=== PATIENT | male | born 1955 | race Caucasian/White ===

== ENCOUNTER 2023-04-24 08:05 | Outpatient (CLI) | payer MEDICARE, SELFPAY | END 2023-04-24 08:06 | disposition home or self-care (01) | LOC: AMB 05-01 16:46 | PROVIDERS: Visit Provider Family Medicine | DX: R42 Dizziness and giddiness (principal); R11.10 Vomiting, unspecified; I95.9 Hypotension, unspecified | CPT/HCPCS: A0425; A0427 ==

== ENCOUNTER 2023-04-24 08:31 | Emergency (ER) | payer MEDICARE, OTHER, SELFPAY ==
[2023-04-24] VITALS (42 sets, daily range): BP systolic 96–134; BP diastolic 49–75; PULSE 79–106; RESP 16; TEMP 35.9; O2SAT 92–100; BMI 26.4
--- NOTE | 2023-04-24 08:47 | CRLHL7_ITS ---
For Patients: As a result of the Century Cures Act, medical imaging exams and procedure reports are released immediately into your electronic medical record. You may view this report before your referring provider. If you have questions, please contact your health care provider. INDICATION: SOB TECHNIQUE: Chest 1 views. COMPARISON: None. FINDINGS: Cardiovascular and mediastinum: Heart size and vasculature are normal in caliber and appearance. Lungs and pleural spaces: Lungs are clear. No sign of infiltrate. No sign of pleural effusion. No pneumothorax. Bones and soft tissues: No significant findings. IMPRESSION: No evidence of acute cardiopulmonary process. Dictated by Monroe Finch MD @ 04/24/2023 10:42:20 AM (Electronically Signed)
--- NOTE | 2023-04-24 08:49 | ED_ITS ---
HPI - General Adult General Chief complaint: Syncope/Fainted Stated complaint: Ill Time Seen by Provider: 04/24/23 08:34 Source: patient Mode of arrival: EMS Limitations: no limitations History of Present Illness HPI narrative: 67-year-old male presenting today complaining of not feeling well. He states that he gets out of bed around 2:00 a.m. to get to work by for, works at [employer], and when he arrived at work he states that he felt ?wonky. Describes this feeling as being lightheaded and tired. He denies fevers or chills. He states he does have a cough on and off. States that he had COVID about 2 weeks ago but feels that his symptoms are almost completely resolved aside from a very mild cough that still comes and goes. He does tell me that around midnight he did get up in vomit x1. Thought that he ate something that did not agree with him. States that yesterday he was feeling fine. He does have history of diabetes, checked his blood sugar when he did not feel good and was elevated in the 300s. Checked his blood pressure in the top number was 69. States that his systolic blood pressures are usually around 130 when he gets up in the morning. He denies a headache, nausea or vomiting. He has no changes in his appetite. He denies any chest or abdominal pain. He denies difficulty walking. He denies any focal neurologic deficits. He denies any urinary symptoms. He denies any diarrhea. He does feel short of breath with minimal physical activity. He states that this has happened to him in the past, he has required fluids and then he felt much better. Related Data Home Medications Medication Instructions Recorded Confirmed duloxetine PO 04/24/23 glyburide PO DAILY 04/24/23 lisinopril PO 04/24/23 lovastatin PO 04/24/23 metformin PO 04/24/23 semaglutide subcut .weekly 04/24/23 tamsulosin 0.4 mg capsule 0.4 mg PO DAILY 04/24/23 04/24/23 Allergies Allergy/AdvReac Type Severity Reaction Status Date / Time No Known Drug Allergies Allergy Verified 04/24/23 14:52 Review of Systems Status of ROS: Reports: 10 or more systems reviewed and unremarkable except as noted in History and below PFSH PFSH Social History Smoking Status: Former smoker Do you use any of these nicotine containing products: None Second hand tobacco smoke exposure: No How often do you have a drink containing alcohol: monthly or less How many standard drinks containing alcohol do you have on a typical day: 1 or 2 How often do you have six or more drinks on one occasion: Never AUDIT-C Alcohol total score: 1 Non-prescribed substance use: denies use service: Yes Exam Narrative: Exam Narrative: Well-nourished well-developed patient in no acute distress. Alert and oriented x3. Answers questions appropriately. Mood and affect are appropriate. Thoughts are goal oriented and rational. No tangential or magical thinking noted. Patient speaks in full sentences without needing to catch their breath. Patient is tachycardic and hypotensive. HEENT: Normocephalic atraumatic. Pupils are equally round reactive to light. Extraocular muscles are intact. Conjunctivae are moist without any icterus noted. Dry mucous membranes. Posterior pharynx is normal. Neck is soft without any lymphadenopathy or thyromegaly. No masses are appreciated. Cardiovascular: Heart is regular rate and rhythm S1 and S2 are present without any murmurs. Lungs: Clear to auscultation bilaterally no wheezes rhonchi or rales are appreciated. Patient takes deep breaths without any discomfort. Abdomen: Soft and nontender nondistended with normal bowel sounds. No guarding or rebound. No masses or organomegaly appreciated. Extremities: Bilateral lower extremities are without edema. Normal DP and PT pulses. Skin: Well perfused without any obvious rashes. Const: Vital Signs, click to edit/add: Vital Signs - 24 hr 04/24/23 08:37 04/24/23 08:53 04/24/23 09:00 Temperature 96.7 F L Pulse Rate 103 H 101 H Pulse Rate [Pulse Oximeter] 106 H Respiratory Rate 16 Blood Pressure Blood Pressure [Ri ght Upper Arm] 96/49 L Blood Pressure [or thostatic lying Ri ght Arm] Blood Pressure [or thostatic sitting Right Arm] Blood Pressure [or thostatic standing Right Arm] Pulse Oximetry 93 96 98 Oxygen Delivery Me thod Room Air 04/24/23 09:05 04/24/23 09:06 04/24/23 09:13 Temperature Pulse Rate 106 H 103 H Pulse Rate [Pulse Oximeter] Respiratory Rate Blood Pressure Blood Pressure [Ri ght Upper Arm] Blood Pressure [or thostatic lying Ri ght Arm] Blood Pressure [or thostatic sitting Right Arm] Blood Pressure [or thostatic standing Right Arm] Pulse Oximetry 95 95 96 Oxygen Delivery Me thod 04/24/23 09:19 04/24/23 09:20 04/24/23 09:30 Temperature Pulse Rate 103 H 100 96 Pulse Rate [Pulse Oximeter] Respiratory Rate Blood Pressure Blood Pressure [Ri ght Upper Arm] Blood Pressure [or thostatic lying Ri ght Arm] Blood Pressure [or thostatic sitting Right Arm] Blood Pressure [or thostatic standing Right Arm] Pulse Oximetry 95 96 96 Oxygen Delivery Me thod 04/24/23 09:32 04/24/23 09:45 04/24/23 09:46 Temperature Pulse Rate 94 93 93 Pulse Rate [Pulse Oximeter] Respiratory Rate Blood Pressure 102/57 L 99/66 Blood Pressure [Ri ght Upper Arm] Blood Pressure [or thostatic lying Ri ght Arm] Blood Pressure [or thostatic sitting Right Arm] Blood Pressure [or thostatic standing Right Arm] Pulse Oximetry 95 96 94 Oxygen Delivery Me thod 04/24/23 10:15 04/24/23 10:17 04/24/23 10:30 Temperature Pulse Rate 100 92 88 Pulse Rate [Pulse Oximeter] Respiratory Rate Blood Pressure 112/56 L Blood Pressure [Ri ght Upper Arm] Blood Pressure [or thostatic lying Ri ght Arm] Blood Pressure [or thostatic sitting Right Arm] Blood Pressure [or thostatic standing Right Arm] Pulse Oximetry 97 97 96 Oxygen Delivery Me thod 04/24/23 10:32 04/24/23 10:47 04/24/23 11:01 Temperature Pulse Rate 85 Pulse Rate [Pulse Oximeter] Respiratory Rate Blood Pressure 104/59 L 101/59 L 111/63 Blood Pressure [Ri ght Upper Arm] Blood Pressure [or thostatic lying Ri ght Arm] Blood Pressure [or thostatic sitting Right Arm] Blood Pressure [or thostatic standing Right Arm] Pulse Oximetry 96 Oxygen Delivery Me thod 04/24/23 11:42 04/24/23 12:02 04/24/23 12:14 Temperature Pulse Rate Pulse Rate [Pulse Oximeter] Respiratory Rate Blood Pressure 106/62 113/61 108/57 L Blood Pressure [Ri ght Upper Arm] Blood Pressure [or thostatic lying Ri ght Arm] Blood Pressure [or thostatic sitting Right Arm] Blood Pressure [or thostatic standing Right Arm] Pulse Oximetry Oxygen Delivery Me thod 04/24/23 12:32 04/24/23 12:33 04/24/23 12:37 Temperature Pulse Rate Pulse Rate [Pulse Oximeter] Respiratory Rate Blood Pressure 114/59 L 111/67 122/65 Blood Pressure [Ri ght Upper Arm] Blood Pressure [or thostatic lying Ri ght Arm] Blood Pressure [or thostatic sitting Right Arm] Blood Pressure [or thostatic standing Right Arm] Pulse Oximetry Oxygen Delivery Sd thod 04/24/23 12:45 04/24/23 13:02 04/24/23 13:13 Temperature Pulse Rate 84 Pulse Rate [Pulse Oximeter] Respiratory Rate Blood Pressure 119/64 Blood Pressure [Ri ght Upper Arm] Blood Pressure [or thostatic lying Ri ght Arm] 108/57 L Blood Pressure [or thostatic sitting Right Arm] 114/59 L Blood Pressure [or thostatic standing Right Arm] 122/65 Pulse Oximetry 98 Oxygen Delivery Sd thod 04/24/23 13:30 04/24/23 13:32 04/24/23 14:00 Temperature Pulse Rate 85 87 85 Pulse Rate [Pulse Oximeter] Respiratory Rate Blood Pressure 119/65 Blood Pressure [Ri ght Upper Arm] Blood Pressure [or thostatic lying Ri ght Arm] Blood Pressure [or thostatic sitting Right Arm] Blood Pressure [or thostatic standing Right Arm] Pulse Oximetry 98 98 96 Oxygen Delivery Sd thod 04/24/23 14:02 04/24/23 14:03 04/24/23 14:54 Temperature Pulse Rate 85 85 89 Pulse Rate [Pulse Oximeter] Respiratory Rate Blood Pressure 118/64 Blood Pressure [Ri ght Upper Arm] Blood Pressure [or thostatic lying Ri ght Arm] Blood Pressure [or thostatic sitting Right Arm] Blood Pressure [or thostatic standing Right Arm] Pulse Oximetry 96 96 96 Oxygen Delivery Sd thod 04/24/23 15:00 04/24/23 15:02 Temperature Pulse Rate 84 83 Pulse Rate [Pulse Oximeter] Respiratory Rate Blood Pressure 134/63 Blood Pressure [Ri ght Upper Arm] Blood Pressure [or thostatic lying Ri ght Arm] Blood Pressure [or thostatic sitting Right Arm] Blood Pressure [or thostatic standing Right Arm] Pulse Oximetry 97 98 Oxygen Delivery Me thod Course Course ED Course: Patient had received about 200 mL of normal saline while in the ambulance, with finish off that bag of 500 mL right away. Another L was started at this time. Point of care glucose in the ambulance was 336. EKG, read by me, shows sinus tachycardia with a pulse of 106 and a left axis deviation. Labs were drawn did show an elevated lactate in 4.8. Lab work was otherwise unremarkable. Repeat lactate was improved at 2.5. Patient did feel significantly better. Was no longer lightheaded. Pressure came up into the 120 systolic. Patient was in the ER for 4 hours, did not have any urine output in the 1st 4 hours. It was until he had a total of 2 L of normal saline that he had urine output. Unfortunately, patient's D-dimer did come back elevated. I did discuss with the patient next steps. With mutual decision making we did proceed with a chest CT to rule out PE given that he was short of breath upon presentation and he had COVID infection 2 weeks ago. We also discussed the possibility of an aortic dissection however patient is completely asymptomatic as far as any chest, abdominal, back or groin pain. We discussed that there is a possibility of an aortic dissection that is otherwise asymptomatic, although rare. This would require a double dose of radiation. Because he was already feeling better, we opted just for the PE study. This was negative. Vital Signs Vital signs: Initial Vital Signs Temperature 96.7 F L 04/24/23 08:37 Temperature Source Temporal Artery Scan 04/24/23 08:37 Pulse Rate 106 H 04/24/23 08:37 Pulse Rhythm Regular 04/24/23 08:37 Pulse Strength 3+ Normal 04/24/23 08:37 Respiratory Rate 16 04/24/23 08:37 Blood Pressure 96/49 L 04/24/23 08:37 Blood Pressure Mean 64 L 04/24/23 08:37 Blood Pressure Position Semi-Fowlers 04/24/23 08:37 Pulse Oximetry 93 04/24/23 08:37 Oxygen Delivery Method Room Air 04/24/23 08:37 Vital Signs Temperature 96.7 F L 04/24/23 08:37 Pulse Rate 106 H 04/24/23 08:37 Respiratory Rate 16 04/24/23 08:37 Blood Pressure 96/49 L 04/24/23 08:37 Pulse Oximetry 93 04/24/23 08:37 Oxygen Delivery Method Room Air 04/24/23 08:37 Temperature 96.7 F L 04/24/23 08:37 Pulse Rate 83 04/24/23 15:02 Respiratory Rate 16 04/24/23 08:37 Blood Pressure 134/63 04/24/23 15:02 Pulse Oximetry 98 04/24/23 15:02 Oxygen Delivery Method Room Air 04/24/23 08:37 Medications Administered Medications: Discontinued Medications Generic Name Dose Route Start Last Admin Trade Name Freq PRN Reason Stop Dose Admin Sodium Chloride 1,000 mls @ 1,000 mls/hr 04/24/23 09:00 04/24/23 10:00 0.9 % Sodium Chloride 1000 Ml IV 04/24/23 09:59 Infused .Q1H [facility] Infusion Sodium Chloride 500 mls @ 500 mls/hr 04/24/23 12:06 04/24/23 14:52 0.9 % Sodium Chloride 500 Ml IV 04/24/23 13:05 Infused .Q1H [facility] Infusion Medical Decision Making MDM Narrative Medical decision making narrative: 67-year-old male with acute dehydration, hypotension, hyperglycemia. Patient is unable to tell me how much fluid he drinks in a day. I asked him to keep a journal as he tells me that this has happened to him in the past. Medical Records Medical records reviewed: Yes I reviewed the patient's medical records Lab Data Lab results reviewed: Yes I reviewed the patient's lab results Labs: Lab Results 04/24/23 04/24/23 04/24/23 Range/Units 08:45 10:02 11:33 WBC 8.08 (4.50-11.00) K/uL RBC 4.26 L (4.30-5.90) m/uL Hgb 12.7 L (13.5-17.5) gm/dL Hct 37.6 (37.0-53.0) % MCV 88 (80-100) fL MCH 30 (26-34) pg MCHC 34 (32-36) gm/dL RDW Coeff of Liz 12.0 (11.5-15.5) % Plt Count 267 (140-440) K/uL Neut % (Auto) 77.2 H (42.0-72.0) % Lymph % (Auto) 15.6 L (20-44) % [place] % (Auto) 5.7 (0.0-11.0) % Eos % (Auto) 0.9 (0.0-7.0) % Baso % (Auto) 0.5 (0.0-3.0) % Neut # (Auto) 6.20 (1.7-7.0) K/uL Lymph # (Auto) 1.30 (0.90-2.90) K/uL [place] # (Auto) 0.50 (0.00-0.90) K/UL Eos # (Auto) 0.07 (0.00-0.50) K/uL Baso # (Auto) 0.04 (0.00-0.30) K/uL Abs Immat Gran (auto) 0.01 (0.00-0.30) K/uL Imm/Tot Granulo (auto) 0.1 % D-Dimer Quant (PE/DVT) 0.71 H (0.00-0.50) ug/ml VBG pH 7.327 (7.32-7.43) VBG pCO2 42 (40-50) mmHG VBG pO2 37.4 (25-47) mmHG VBG HCO3 22 (21-28) mmol/L Sodium 134 L (135-149) mmol/L Potassium 4.9 (3.6-5.1) mmol/L Chloride 101 (96-114) mmol/L Carbon Dioxide 19 L (20-32) mmol/L Anion Gap 14 (7-15) mEq/L BUN 26 (7-30) mg/dL Creatinine 1.5 (0.5-1.5) mg/dL Estimated Creat Clear 55.49 Estimated GFR 51 ml/min Glucose 287 H (60-115) mg/dL Lactate 4.8 H* 2.5 H (0.5-1.9) mmol/L Calcium 8.9 (8.4-10.6) mg/dL Total Bilirubin 0.2 (0.1-1.5) mg/dL Direct Bilirubin 0.0 (0.0-0.5) mg/dL AST 17 (12-35) U/L ALT 22 (4-50) U/L Alkaline Phosphatase 62 (40-150) U/L Troponin I < 0.01 L (0.01-0.04) ng/mL C-Reactive Protein < 0.5 L (0.5-1.0) mg/dL Total Protein 6.5 (6.0-8.3) g/dL Albumin 4.0 (3.3-5.0) g/dL Procalcitonin 0.06 (<0.50) ng/mL TSH 1.840 (0.270-4.20) uIU/mL Urine Color Yellow (Yellow) Urine Appearance Clear (Clear) Urine pH 5.5 (5.0-8.5) Ur Specific [place] 1.025 (1.000-1.030) Urine Protein 1+ A (Negative) Urine Glucose (UA) Trace A (Negative) Urine Ketones Trace A (Negative) Urine Blood Negative (Negative) Urine Nitrite Negative (Negative) Urine Bilirubin 1+ A (Negative) Urine Urobilinogen 0.2 (0.2-1.0) Ur Leukocyte Esterase Negative (Negative) Urine RBC 0-2 (0-2) Urine WBC 0-2 (0-5) Ur Squamous Epith Cells None (None-Few) Urine Bacteria Few A (None) Urine Mucus Moderate A (None) SARS-CoV-2 (PCR) Negative SARS-CoV-2 (Negative) Influenza Type A (PCR) Negative PCR FLU A (Negative) Influenza Type B (PCR) Negative PCR FLU B (Negative) RSV (PCR) Negative PCR RSV (Negative) Lab Acknowledgement POC Troponin I 0.01 (0.01-0.04) ng/ml 04/24/23 Range/Units 12:04 WBC (4.50-11.00) K/uL RBC (4.30-5.90) m/uL Hgb (13.5-17.5) gm/dL Hct (37.0-53.0) % MCV (80-100) fL MCH (26-34) pg MCHC (32-36) gm/dL RDW Coeff of Liz (11.5-15.5) % Plt Count (140-440) K/uL Neut % (Auto) (42.0-72.0) % Lymph % (Auto) (20-44) % [place] % (Auto) (0.0-11.0) % Eos % (Auto) (0.0-7.0) % Baso % (Auto) (0.0-3.0) % Neut # (Auto) (1.7-7.0) K/uL Lymph # (Auto) (0.90-2.90) K/uL [place] # (Auto) (0.00-0.90) K/UL Eos # (Auto) (0.00-0.50) K/uL Baso # (Auto) (0.00-0.30) K/uL Abs Immat Gran (auto) (0.00-0.30) K/uL Imm/Tot Granulo (auto) % D-Dimer Quant (PE/DVT) (0.00-0.50) ug/ml VBG pH (7.32-7.43) VBG pCO2 (40-50) mmHG VBG pO2 (25-47) mmHG VBG HCO3 (21-28) mmol/L Sodium (135-149) mmol/L Potassium (3.6-5.1) mmol/L Chloride (96-114) mmol/L Carbon Dioxide (20-32) mmol/L Anion Gap (7-15) mEq/L BUN (7-30) mg/dL Creatinine (0.5-1.5) mg/dL Estimated Creat Clear Estimated GFR ml/min Glucose (60-115) mg/dL Lactate (0.5-1.9) mmol/L Calcium (8.4-10.6) mg/dL Total Bilirubin (0.1-1.5) mg/dL Direct Bilirubin (0.0-0.5) mg/dL AST (12-35) U/L ALT (4-50) U/L Alkaline Phosphatase (40-150) U/L Troponin I (0.01-0.04) ng/mL C-Reactive Protein (0.5-1.0) mg/dL Total Protein (6.0-8.3) g/dL Albumin (3.3-5.0) g/dL Procalcitonin (<0.50) ng/mL TSH (0.270-4.20) uIU/mL Urine Color (Yellow) Urine Appearance (Clear) Urine pH (5.0-8.5) Ur Specific [place] (1.000-1.030) Urine Protein (Negative) Urine Glucose (UA) (Negative) Urine Ketones (Negative) Urine Blood (Negative) Urine Nitrite (Negative) Urine Bilirubin (Negative) Urine Urobilinogen (0.2-1.0) Ur Leukocyte Esterase (Negative) Urine RBC (0-2) Urine WBC (0-5) Ur Squamous Epith Cells (None-Few) Urine Bacteria (None) Urine Mucus (None) SARS-CoV-2 (PCR) (Negative) Influenza Type A (PCR) (Negative) Influenza Type B (PCR) (Negative) RSV (PCR) (Negative) Lab Acknowledgement Test Added POC Troponin I (0.01-0.04) ng/ml Imaging Data Chest x-ray: Attestation: I have reviewed the pertinent imaging results. Radiologist's impression: Chest 1 views. COMPARISON: None. FINDINGS: Cardiovascular and mediastinum: Heart size and vasculature are normal in caliber and appearance. Lungs and pleural spaces: Lungs are clear. No sign of infiltrate. No sign of pleural effusion. No pneumothorax. Bones and soft tissues: No significant findings. IMPRESSION: No evidence of acute cardiopulmonary process. ECG Data Attestation: I personally reviewed and interpreted this ECG as follows: Discharge Plan Discharge Clinical Impression: Type 2 diabetes mellitus, Hyperglycemia, Hypotension, Dehydration Patient Disposition: Home, Self-Care Condition: Stable Additional Instructions: You were found to be very dehydrated during your workup in the emergency room department today. You received 2 Liters of fluid while you are here. You should increase your daily fluid intake. Recommended keep a journal of how much fluid you drink per day. Also make sure that you sugars are well controlled. If they remain elevated, follow-up with your primary care provider right away. If symptoms return, you should return to the ER. Recommend you follow-up with primary care provider in the next week. Prescriptions: No Action metformin PO duloxetine PO tamsulosin 0.4 mg capsule 0.4 mg PO DAILY lisinopril PO lovastatin PO glyburide PO DAILY semaglutide [Ozempic] subcut .weekly Follow Up/Referrals: Provider,Not a Local [Primary Care Provider] - Stand Alone Forms: [employer] Info Instructions
[2023-04-24 09:00] LABS: HCO3 VBG 22 mmol/L (21-28); PCO2 VBG 42 mmHG (40-50); PO2 VBG 37.4 mmHG (25-47); pH VBG 7.327 (7.32-7.43)
[2023-04-24 09:01] LABS: Lactate* 4.8 mmol/L (0.5-1.9)
[2023-04-24 09:02] LABS: Basophils Absolute Auto 0.04 K/uL (0.00-0.30); Basophils Percent Auto 0.5 % (0.0-3.0); Eosinophils Absolute Auto 0.07 K/uL (0.00-0.50); Eosinophils Percent Auto 0.9 % (0.0-7.0); Hematocrit 37.6 % (37.0-53.0); Hemoglobin* 12.7 gm/dL (13.5-17.5); Immature Granulocytes Abs Auto 0.01 K/uL (0.00-0.30); Immature Granulocytes Pct Auto 0.1 %; Lymphocytes Percent Auto 15.6 % (20-44); Mean Corpuscular HGB Conc 34 gm/dL (32-36); Mean Corpuscular Hemoglobin 30 pg (26-34); Mean Corpuscular Volume 88 fL (80-100); Monocytes Percent Auto 5.7 % (0.0-11.0); Neutrophils Percent Auto 77.2 % (42.0-72.0); Platelet Count* 267 K/uL (140-440); Red Blood Count 4.26 m/uL (4.30-5.90); White Blood Count* 8.08 K/uL (4.50-11.00)
[2023-04-24 09:03] LABS: Slide Review Reflex No
[2023-04-24] MEDS: 0.9 % SODIUM CHLORIDE 1000 ml 1,000 ML 1200 ML IV (09:10)
[2023-04-24 09:11] LABS: Troponin, Point-of-Care* 0.01 ng/ml (0.01-0.04)
[2023-04-24 09:28] LABS: Chloride* 101 mmol/L (96-114); Sodium* 134 mmol/L (135-149)
[2023-04-24 09:29] LABS: Potassium* 4.9 mmol/L (3.6-5.1)
[2023-04-24 09:31] LABS: Alanine Aminotransferase* 22 U/L (4-50); Alkaline Phosphatase* 62 U/L (40-150); Aspartate Amino Transferase* 17 U/L (12-35); Bilirubin Total* 0.2 mg/dL (0.1-1.5); Creatinine* 1.5 mg/dL (0.5-1.5); Est. Creatinine Clearance* 55.49; Estimated Glomerular Filt Rate 51 ml/min; Total Protein* 6.5 g/dL (6.0-8.3)
[2023-04-24 09:32] LABS: Anion Gap 14 mEq/L (7-15); Blood Urea Nitrogen* 26 mg/dL (7-30); Calcium* 8.9 mg/dL (8.4-10.6); Carbon Dioxide* 19 mmol/L (20-32); Glucose* 287 mg/dL (60-115)
[2023-04-24 09:37] LABS: PCR FLU A Negative PCR FLU A (Negative); PCR FLU B Negative PCR FLU B (Negative); PCR RSV Negative PCR RSV (Negative)
[2023-04-24 09:39] LABS: C Reactive Protein* < 0.5 mg/dL (0.5-1.0)
[2023-04-24 09:49] LABS: Procalcitonin* 0.06 ng/mL (<0.50)
[2023-04-24 09:50] LABS: Troponin I* < 0.01 ng/mL (0.01-0.04)
[2023-04-24 09:53] LABS: SARS PCR* Negative SARS-CoV-2 (Negative)
[2023-04-24 11:38] LABS: Lactate* 2.5 mmol/L (0.5-1.9)
[2023-04-24] MEDS: 0.9 % SODIUM CHLORIDE 500 ML 500 ML IV (12:41)
[2023-04-24 12:50] LABS: D Dimer Quantitative* 0.71 ug/ml (0.00-0.50)
[2023-04-24 13:19] LABS: Appearance Urine Clear (Clear); Bilirubin Urine 1+ (Negative); Blood Urine Negative (Negative); Color Urine Yellow (Yellow); Glucose Urine Trace (Negative); Ketones Urine Trace (Negative); Leukocyte Esterase Urine Negative (Negative); Nitrite Urine Negative (Negative); Protein Urine 1+ (Negative); Specific Gravity Urine 1.025 (1.000-1.030); Urobilinogen Urine 0.2 (0.2-1.0); pH Urine 5.5 (5.0-8.5)
--- NOTE | 2023-04-24 13:25 | CRLHL7_ITS ---
For Patients: As a result of the Century Cures Act, medical imaging exams and procedure reports are released immediately into your electronic medical record. You may view this report before your referring provider. If you have questions, please contact your health care provider. INDICATION: Pulmonary embolism suspected. TECHNIQUE: CT chest PE was acquired with 95 cc Isovue 370 IV contrast. COMPARISON: None. FINDINGS: Heart and vasculature: Contrast opacification of the pulmonary arterial tree is adequate. No sign of pulmonary embolism. Heart size is within normal limits. Thoracic aorta and pulmonary artery are normal in caliber. Lungs and pleura: No suspicious nodules or infiltrates. There are mild dependent atelectatic changes. No pleural effusions, pleural thickening, or pneumothorax. Lymph nodes/mediastinum: No mediastinal, hilar, or axillary adenopathy. Chest wall: No masses. Mild bilateral gynecomastia. Upper abdomen: No acute findings. Small hiatal hernia. Bones: Unremarkable for age. IMPRESSION: No pulmonary embolism. Please note that all CT scans at this facility use dose modulation, iterative reconstruction, and/or weight-based dosing when appropriate to reduce radiation dose to as low as reasonably achievable. Dictated by Jamel Sharif MD @ 04/24/2023 4:26:57 PM (Electronically Signed)
[2023-04-24 14:02] LABS: Bacteria Urine Few; Mucus Urine Moderate; RBC Urine 0-2 (0-2); WBC Urine 0-2 (0-5)
== END 2023-04-24 16:37 | disposition home or self-care (01) ==
PROVIDERS: Emergency Provider Family Medicine
DX: E11.65 Type 2 diabetes mellitus with hyperglycemia (principal); I95.9 Hypotension, unspecified; E86.0 Dehydration
CPT/HCPCS: 36415; 71045; 71275; 80048; 80076; 81001; 82803; 83605; 84145; 84443; 84484; 85025; 85379; 86140; 87040; 87077; 87086; 87186; 87631; 93005; 94761; 99285; J7030; J7120; Q9967